=== PATIENT | male | born 2000 | race Caucasian/White ===

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

== ENCOUNTER 2019-09-12 19:06 | Emergency (ER) | payer OTHER, SELFPAY ==
[2019-09-12 19:20] VITALS: BP 126/76; PULSE 78; RESP 19; TEMP 36.6; O2SAT 99; BMI 23.3
--- NOTE | 2019-09-12 19:37 | HMH.EDUTC ---
[facility] [place] Disposition Clinical Impression: Encounter for laboratory testing for COVID-19 virus Disposition: Home, Self-Care Condition on Discharge: Good Instructions: Preventing the Spread of Coronavirus Discharge Instructions Additional Instructions: Go home and self quarantine until you get your test results back and negative result *You was given handout with instructions for both suspected COVID19 quarantine instructions and confirmed COVID 19 instructions, make sure you read and follow these instructions to help prevent the spread of COVID19 *Call back to [facility] on Saturday to see if your test results are back Return if needed Straight to ER if any life threatening symptoms Even if you have a negative result if you start having symptoms of COVID19 you will need to be retested Referrals: PCP,No [Primary Care Provider] - As needed Forms: Work/School Release Time of Disposition: 19:54 Medical Decision Making - Eduardo Inquiry Pt receiving controlled substance: No Eduardo was queried for this patient: No Vital Signs: 09/12/19 19:20 Temperature 97.9 F Temperature Source Oral Pulse Rate [Right Brachial] 78 Respiratory Rate 19 Blood Pressure [Right Arm] 126/76 Blood Pressure Mean [Right Arm] 92 Blood Pressure Source [Right Arm] Automatic Cuff Blood Pressure Position [Right Arm] Sitting 02 Sat by Pulse Oximetry 99 Oxygen Delivery Method Room Air Orders (Tests/Meds): ORDERS Category Date Time Status SARS-CoV-2, JOSE ([place]) Stat Lab 09/12/19 19:10 Ordered [facility] [place] HPI - General Stated complaint: exposed to covid 19 Time Seen by Provider: 09/12/19 19:37 Mode of Arrival: Ambulatory Source of Information: Patient Limitations: No Limitations Description of Symptoms (Recalled from Triage Doc. by RN): PATIENT REQUESTING COVID-19 TEST AFTER BEING EXPOSED ON 09/05/19. DENIES ANY SYMPTOMS HEENT Symptoms (Recalled from RN notes): No Resp Symptoms (Recalled from RN notes): No Skin Symptoms (Recalled from RN notes): No MS Symptoms (Recalled from RN notes): No Functional Status (Recalled from RN notes): WNL - History of Present Illness Provider Complaint: Patient states that he was around someone on the 4th that recently tested positive for COVID19 States that initialy her test was negative then she was retested and it was positive States that his work made him to come and get checked and tested - Related Data Allergies Allergy/AdvReac Type Severity Reaction Status Date / Time No Known Allergies Allergy Verified 12/18/18 18:17 - Worker's Comp Is this a Worker's Comp case?: No [facility] History - Hepatitis A Screen Drug use history?: No High risk sexual behaviors?: No History of sexually transmitted infection?: No Currently employed?: No Childcare worker?: No Do you have indoor plumbing?: Yes Do you have electricity?: Yes Attestation statement:: This patient has been screened for Hepatitis A risk factors. I have reviewed the patient's past medical history: Yes Medical History: Denies:: Cancer, Diabetes Mellitus Type 1, Diabetes Mellitus Type 2, Hypertension, MRSA Other Surgeries: Yes: No Previous Surgery Amputation: No Fractures: No - Social History Smoking Status: Never smoker Alcohol Intake: never Substance Use Type: denies use Occupational Status: other Housing: house Household Members: family Family Hx:: Diabetes, Hypertension ROS Obtained: Yes All systems reviewed & no additional complaints, Yes Systems reviewed as appropriate & no additional complaints - Constitutional Constitutional: Reports system reviewed and no additional complaints, except as docu, Denies body ache, Denies chills, Denies fever(s), Denies headache(s) - ENT Ears, Nose, Mouth, and Throat: Reports system reviewed and no additional complaints, except as docu, Denies sinus pain, Denies sinus pressure, Denies sore throat - Cardiovascular Cardiovascular: Reports system reviewed and no additional complaints, except as docu - Respira
[2019-09-12 19:55] VITALS: BP 126/76; PULSE 78; RESP 19; TEMP 36.6; O2SAT 99
[2019-09-14 19:02] LABS: Covid-19 Nasal PCR Sendout UK Not Detected
== END 2019-09-12 19:57 | disposition home or self-care (01) ==
PROVIDERS: Emergency Provider Nurse Practitioner
DX: Z03.818 Encounter for observation for suspected exposure to other biological agents ruled out (principal)
CPT/HCPCS: 99201; U0003

== ENCOUNTER 2019-12-02 15:57 | Emergency (ER) | payer OTHER, SELFPAY ==
[2019-12-02 16:12] VITALS: BP 124/85; PULSE 68; RESP 19; TEMP 36.6; O2SAT 98; BMI 22.2
--- NOTE | 2019-12-02 16:51 | HMH.EDUTC ---
[facility] [place] Clinical Impression: Viral syndrome Disposition: Home, Self-Care Condition on Discharge: Good Instructions: DI for Viral Syndrome Additional Instructions: Drink plenty of fluids. Take tylenol or ibuprofen for pain or fever. Take the medications as directed. Follow up with your regular doctor. GO TO THE ER FOR ANY WORSENING SYMPTOMS FOLLOW THE DIRECTIONS ON THE COVID-19 HAND OUT THAT WE GAVE YOU REGARDING SELF-ISOLATION UNTIL YOU KNOW YOUR COVID-19 RESULTS Prescriptions: Ondansetron [Zofran 4mg ODT] 4 mg PO Q8HP PRN #10 tab.rapdis PRN Reason: Nausea Transmission Status: Pending to [facility] #[id number] Referrals: PCP,No [Primary Care Provider] - Forms: Work/School Release Time of Disposition: 16:56 Medical Decision Making - Medical Records Medical records reviewed: No: I reviewed the patient's medical records. - Eduardo Inquiry Pt receiving controlled substance: No Vital Signs: 12/02/19 16:12 Temperature 97.8 F Temperature Source Oral Pulse Rate [Radial] 68 Respiratory Rate 19 Blood Pressure [Right Arm] 124/85 Blood Pressure Mean [Right Arm] 98 Blood Pressure Source [Right Arm] Automatic Cuff Blood Pressure Position [Right Arm] Sitting 02 Sat by Pulse Oximetry 98 Oxygen Delivery Method Room Air Orders (Tests/Meds): ORDERS Category Date Time Status Covid-19 Nasal PCR ([facility]) Routine Lab 12/02/19 16:20 Received [facility] [place] HPI - General Stated complaint: SOB, Back pain,headaches Time Seen by Provider: 12/02/19 16:51 Mode of Arrival: Ambulatory Source of Information: Patient Limitations: No Limitations Description of Symptoms (Recalled from Triage Doc. by RN): cough, headache, exposed to COVID yest HEENT Symptoms (Recalled from RN notes): Yes Resp Symptoms (Recalled from RN notes): No Skin Symptoms (Recalled from RN notes): No MS Symptoms (Recalled from RN notes): No Functional Status (Recalled from RN notes): wnl - History of Present Illness Provider Complaint: He c/o chilling, body aches and nausea since this morning. He believes that he was exsposed to COVID-19 a few days ago. - Related Data Previous Rx's Medication Instructions Recorded Ondansetron [Zofran 4mg ODT] 4 mg PO Q8HP PRN #10 tab.rapdis 12/02/19 Allergies Allergy/AdvReac Type Severity Reaction Status Date / Time No Known Allergies Allergy Verified 12/18/18 18:17 - Worker's Comp Is this a Worker's Comp case?: No [facility] History - Hepatitis A Screen Drug use history?: No High risk sexual behaviors?: No History of sexually transmitted infection?: No Currently employed?: No Childcare worker?: No Do you have indoor plumbing?: Yes Do you have electricity?: Yes Attestation statement:: This patient has been screened for Hepatitis A risk factors. I have reviewed the patient's past medical history: Yes Medical History: Denies:: Cancer, Diabetes Mellitus Type 1, Diabetes Mellitus Type 2, Hypertension, MRSA Other Surgeries: Yes: No Previous Surgery Amputation: No Fractures: No - Social History Smoking Status: Never smoker Alcohol Intake: never Substance Use Type: denies use Occupational Status: other Housing: house Household Members: family Family Hx:: Diabetes, Hypertension ROS Obtained: Yes All systems reviewed & no additional complaints - Constitutional Constitutional: Reports chills, Reports fever(s), Reports poor appetite, Reports malaise - Eyes Eyes: Denies eye discharge - ENT Ears, Nose, Mouth, and Throat: Denies dizziness, Denies otalgia, Reports sore throat - Cardiovascular Cardiovascular: Denies chest pain - Respiratory Respiratory: No chest congestion, No cough - Gastrointestinal Gastrointestingal: Reports: nausea. Denies: abdominal pain, diarrhea, vomiting Physical Exam - General General appearance: alert, in no apparent distress - Head Head exam: atraumatic, normocephalic, normal inspection - Eye Eye e
[2019-12-02 17:09] VITALS: BP 124/85; PULSE 68; RESP 19; TEMP 36.6; O2SAT 98
== END 2019-12-02 17:10 | disposition home or self-care (01) ==
PROVIDERS: Emergency Provider Nurse Practitioner Family
DX: B34.9 Viral infection, unspecified (principal); Z20.828 Contact with and (suspected) exposure to other viral communicable diseases
CPT/HCPCS: 99201; U0003

== ENCOUNTER 2020-01-21 09:50 | Emergency (ER) | payer OTHER, SELFPAY ==
[2020-01-21 10:02] VITALS: BP 110/73; PULSE 72; RESP 18; TEMP 36.7; O2SAT 100; BMI 24.4
--- NOTE | 2020-01-21 10:18 | HMH.EDUTC ---
[facility] [place]: Viral syndrome Disposition: Home, Self-Care Condition on Discharge: Good Instructions: Cough, DI for Cough -- Adult, Nausea and Vomiting-Adult, Sore Throat Additional Instructions: * No sign of bacterial infection. Likely viral. Virus can take 7-14 days to run their course *Monitor Temp, Over the counter Motrin or Tylenol as directed/as needed Tylenol every 4 hours and Motrin every 6 hours (as long as your family doctor has told you that you can take it) for fever or pain. and straight to ER if unable to lower temp less than 101.0 after medication given *Warm salt water gargles may help to soothe the throat *Throat Lozenges *Warm fluids like tea with honey may help to soothe the throat *Sleep elevated *Humidifier/Vaporizer Your throat swab was sent for culture. Those results are typically sent to your primary care. Be sure to follow up in 2-3 days with your family doctor/primary care physician if no improvement so they can review those result and treat if necessary. If you don?t have a primary care doctor, I recommend you get one but in the mean time, you will have to return to a walk in clinic Follow up IMMEDIATELY for new or worsening symptoms or no Noticeable improvement over the next 48-72 hours. 911 for difficulty breathing or swallowing You was tested for today for COVID19 your test result should be back in the next 24-48 hours, you may call to the [facility] later today or tomorrow to see if your test results are back and the result [phone] [facility] hours are 9am-9pm You was given a handout with instructions for Self Quarantine and Self isolation for while you wait on test results and what to do if they are positive If you are positive the Health Dept will be contacting you also Prescriptions: Fluticasone Propionate [Flonase 50mcg nasal spray 16gm] 1 spr NS DAILY #1 bottle Transmission Status: Pending to [facility] # Ondansetron [Zofran 4mg ODT] 4 mg PO TIDP PRN #6 tab PRN Reason: Vomiting Transmission Status: Pending to [facility] #[id number] Referrals: PCP,No [Primary Care Provider] - As needed Forms: Work/School Release Time of Disposition: 10:24 Medical Decision Making - Eduardo Inquiry Pt receiving controlled substance: No Eduardo was queried for this patient: No Vital Signs: 01/21/20 10:02 Temperature 98.0 F Temperature Source Oral Pulse Rate [Radial] 72 Respiratory Rate 18 Blood Pressure [Right Arm] 110/73 Blood Pressure Mean [Right Arm] 85 Blood Pressure Source [Right Arm] Automatic Cuff Blood Pressure Position [Right Arm] Sitting 02 Sat by Pulse Oximetry 100 Oxygen Delivery Method Room Air [facility] [place] - General Stated complaint: sore throat,headache,vomiting Time Seen by Provider: 01/21/20 10:18 Mode of Arrival: Ambulatory Source of Information: Patient Limitations: No Limitations Description of Symptoms (Recalled from Triage Doc. by RN): aquino, wants tested for flu and strep HEENT Symptoms (Recalled from RN notes): Yes Resp Symptoms (Recalled from RN notes): No Skin Symptoms (Recalled from RN notes): No MS Symptoms (Recalled from RN notes): No Functional Status (Recalled from RN notes): wnl - History of Present Illness Provider Complaint: Patient states that he hasnt felt well for about 2 weeks States that he has been having nausea and vomiting off and off usually after coughing States that he has had headache and body aches and his throat feels sore and scratchy States that he wanted to get tested for flu and strep - Related Data Previous Rx's Medication Instructions Recorded Ondansetron [Zofran 4mg ODT] 4 mg PO Q8HP PRN #10 tab.rapdis 12/02/19 Fluticasone Propionate [Flonase 1 spr NS DAILY #1 bottle 01/21/20 50mcg nasal spray 16gm] Ondansetron [Zofran 4mg ODT] 4 mg PO TIDP PRN #6 tab 01/21/20 Allergies Allergy/AdvReac Type Severity Reaction Status Date / Time No Known Allergies Allergy Verified
[2020-01-21 10:32] VITALS: BP 110/73; PULSE 72; RESP 18; TEMP 36.7; O2SAT 100
[2020-01-21 20:12] LABS: UTC Influenza A Antigen Negative (Negative); UTC Influenza B Antigen Negative (Negative); UTC Strep Screen (Rapid) Negative (Negative)
[2020-01-22 10:45] LABS: Covid-19 Nasal PCR Sendout Lex Not Detected
== END 2020-01-21 10:32 | disposition home or self-care (01) ==
PROVIDERS: Emergency Provider Nurse Practitioner
DX: Z20.828 Contact with and (suspected) exposure to other viral communicable diseases (principal); B34.9 Viral infection, unspecified
CPT/HCPCS: 87804; 87880; 99202; U0004

== ENCOUNTER 2020-02-28 08:35 | Emergency (ER) | payer OTHER, SELFPAY ==
[2020-02-28 08:37] VITALS: BP 132/76; PULSE 88; RESP 16; TEMP 36.7; O2SAT 99; BMI 21.7
--- NOTE | 2020-02-28 08:43 | HMH.EDGENADL ---
ED Disposition Clinical Impression: Laceration Disposition: Home, Self-Care Condition on Discharge: Good Instructions: DI for Laceration Repair Additional Instructions: Over the next 24 hours, try not to get suture site wet. After that, you can clean gently around suture site but do not directly scrub on suture site. Please return in 5 to 7 days for suture removal. Return before then if any issues. Referrals: PCP,No [Primary Care Provider] - - Critical Care Critical Care Time: No Attestation: On 02/28/20, the high probability of a clinically significant, sudden or life threatening deterioration of the following system(s) required my full and direct attention, intervention and personal management. The time I documented below is in addition to time spent performing reported procedures but includes the following listed in this critical care notation. Medical Decision Making - Medical Records Medical records reviewed: Yes: I reviewed the patient's medical records. - Eduardo Inquiry Pt receiving controlled substance: No Vital Signs: 02/28/20 08:37 Temperature 98.1 F Temperature Source Oral Pulse Rate [Right Radial] 88 Respiratory Rate 16 Blood Pressure [Right Arm] 132/76 Blood Pressure Mean [Right Arm] 94 Blood Pressure Source [Right Arm] Automatic Cuff Blood Pressure Position [Right Arm] Sitting 02 Sat by Pulse Oximetry 99 Oxygen Delivery Method Room Air Orders (Tests/Meds): ED MEDICATIONS Discontinued Medications Generic Name Dose Route Start Last Admin Trade Name Rodrick PRN Reason Stop Dose Admin Lidocaine/Epinephrine 10 ml 02/28/20 08:50 02/28/20 09:05 Lidocaine 1% W/Epi 1:100,000 20ml Vial SQ 02/28/20 08:51 10 ml ONCE ONE Administration Tetanus/Reduced Diphtheria/Acell Pertussis 0.5 ml 02/28/20 09:00 02/28/20 08:55 Tet/Diphth/Pert-Adult 0.5ml Syringe IM 02/28/20 09:01 0.5 ml .ONCE ONE Administration Medical Decision Narrative: Patient with upper eyelid laceration. Indication for repair in the emergency department. Tetanus updated. See procedure section for further details on laceration repair. Patient tolerated procedure well. He will return in 5 to 7 days for suture removal. He will return before that if any complications. Assessment: Eyelid laceration status post suture repair Tdap Disposition: Home with suture care guidelines and follow-up in 5 to 7 days for suture removal General Adult HPI - General Stated complaint: left eye lceration Time Seen by Provider: 02/28/20 08:43 - History of Present Illness HPI narrative: Patient is a 19-year-old male presenting with a left eyelid laceration. Patient states 1 hour ago at work he tripped and accidentally brushed the side of his face up against a pole. He suffered a laceration to his left upper eyelid. No vision changes. No loss of consciousness. No associated pain. He is unsure of his tetanus status. He is concerned he may need stitches. - Related Data Previous Rx's Medication Instructions Recorded cyclobenzaprine 10 mg tablet 10 mg PO TID PRN 7 Days #21 tab 02/09/20 Allergies Allergy/AdvReac Type Severity Reaction Status Date / Time No Known Allergies Allergy Verified 02/09/20 15:18 [facility] History - Hepatitis A Screen Attestation statement:: This patient has been screened for Hepatitis A risk factors. Medical History: Denies:: Cancer, Diabetes Mellitus Type 1, Diabetes Mellitus Type 2, Hypertension, MRSA Other Surgeries: Yes: No Previous Surgery Amputation: No Fractures: No - Social History Smoking Status: Never smoker Alcohol Intake: never Substance Use Type: denies use Occupational Status: employed Housing: house Household Members: family Family Hx:: Diabetes, Hypertension, Non-contributory ROS Obtained: Yes All systems reviewed & no additional complaints Physical Exam - General General appearance: alert, in no apparent distress - Head Head exam: nor
[2020-02-28 09:12] VITALS: BP 121/78; PULSE 80; O2SAT 99
[2020-02-28 09:34] VITALS: BP 117/72; PULSE 71; RESP 16; TEMP 36.7; O2SAT 99
== END 2020-02-28 09:35 | disposition home or self-care (01) ==
PROVIDERS: Emergency Provider Emergency Medicine
DX: S01.112A Laceration without foreign body of left eyelid and periocular area, initial encounter (principal); W22.09XA Striking against other stationary object, initial encounter; Y92.89 Other specified places as the place of occurrence of the external cause; Z23 Encounter for immunization
CPT/HCPCS: 12013; 90471; 90715; 99282

== ENCOUNTER 2020-03-04 11:00 | Emergency (ER) | payer OTHER, SELFPAY ==
[2020-03-04 11:30] VITALS: BMI 23.3
[2020-03-04 11:31] VITALS: BP 0/0; PULSE 0; RESP 0; TEMP -17.7; TEMP 0
== END 2020-03-04 11:32 | disposition home or self-care (01) ==
LOC: UTC 11:30
PROVIDERS: Emergency Provider Nurse Practitioner
DX: S01.112D Laceration without foreign body of left eyelid and periocular area, subsequent encounter (principal)

== ENCOUNTER 2020-04-05 14:01 | Emergency (ER) | payer OTHER, SELFPAY ==
[2020-04-05 14:05] VITALS: BP 122/74; PULSE 81; RESP 18; TEMP 37; O2SAT 98; BMI 20.3
--- NOTE | 2020-04-05 14:22 | HMH.EDUTC ---
[facility] [place] Disposition Clinical Impression: Encounter for laboratory testing for COVID-19 virus Otitis media Qualifiers: Otitis media type: unspecified Laterality: left Qualified Code(s): H66.92 - Otitis media, unspecified, left ear Disposition: Home, Self-Care Condition on Discharge: Good Instructions: Middle Ear Infection, Amoxicillin, DI for COVID-19 (Suspected or Confirmed ), Coronavirus Disease 2019, Preventing the Spread of Coronavirus Discharge Instructions Additional Instructions: *Monitor Temp, Over the counter Motrin or Tylenol as directed/as needed Tylenol every 4 hours and Motrin every 6 hours (as long as your family doctor has told you that you can take it) for fever or pain. and straight to ER if unable to lower temp less than 101.0 after medication given *Warm salt water gargles may help to soothe the throat *Throat Lozenges *Warm fluids like tea with honey may help to soothe the throat *Sleep elevated *Humidifier/Vaporizer *Flonase 2 sprays in each nostril daily but be aware that it may take 2-3 days before you notice improvement Your throat swab was sent for culture. Those results are typically sent to your primary care. Be sure to follow up in 2-3 days with your family doctor/primary care physician if no improvement so they can review those result and treat if necessary. If you don?t have a primary care doctor, I recommend you get one but in the mean time, you will have to return to a walk in clinic Follow up IMMEDIATELY for new or worsening symptoms or no Noticeable improvement over the next 48-72 hours. 911 for difficulty breathing or swallowing You were tested for today for COVID19 your test result should be back in the next 24-48 hours, you may call to the [facility] to see if your test results are back in the next 48 hours [phone] [facility] hours are 9am-9pm You was given a handout with instructions for Self Quarantine and Self isolation for while you wait on test results and what to do if they are positive If you are positive the Health Dept will be contacting you also Prescriptions: Amoxicillin [Amoxicillin 500mg Cap] 500 mg PO TID #30 cap Transmission Status: Pending to [facility] #[id number] Fluticasone Propionate [Flonase 50mcg nasal spray 16gm] 1 spr NS DAILY #1 bottle Transmission Status: Pending to [facility] #[id number] Referrals: PCP,No [Primary Care Provider] - As needed Forms: Work/School Release Time of Disposition: 14:26 Medical Decision Making - Eduardo Inquiry Pt receiving controlled substance: No Eduardo was queried for this patient: No Vital Signs: 04/05/20 14:05 Temperature 98.6 F Temperature Source Oral Pulse Rate [Right Brachial] 81 Respiratory Rate 18 Blood Pressure [Right Arm] 122/74 Blood Pressure Mean [Right Arm] 90 Blood Pressure Source [Right Arm] Automatic Cuff Blood Pressure Position [Right Arm] Sitting 02 Sat by Pulse Oximetry 98 Oxygen Delivery Method Room Air - Lab Data Lab results reviewed: Yes: I reviewed the patient's lab results. Orders (Tests/Meds): ORDERS Category Date Time Status Covid-19 Nasal PCR ([facility]) Routine Lab 04/05/20 14:08 Received [facility] [place] HPI - General Stated complaint: covid test Time Seen by Provider: 04/05/20 14:22 Mode of Arrival: Ambulatory Source of Information: Patient Limitations: No Limitations Description of Symptoms (Recalled from Triage Doc. by RN): PATIENT C/O SORE THROAT, DIZZINESS, AND DIARRHEA X 2 DAYS HEENT Symptoms (Recalled from RN notes): Yes Resp Symptoms (Recalled from RN notes): No Skin Symptoms (Recalled from RN notes): No MS Symptoms (Recalled from RN notes): No Functional Status (Recalled from RN notes): WNL - History of Present Illness Provider Complaint: Patient states that he has been around several people that work with him that has recently tested postive for COVID States that he has been having sore throat pain in his left ear, feeling of dizziness at times when he changes positions
[2020-04-05 14:27] VITALS: BP 122/74; PULSE 81; RESP 18; TEMP 37; O2SAT 98
[2020-04-05 14:37] LABS: UTC Strep Screen (Rapid) Negative (Negative)
== END 2020-04-05 14:32 | disposition home or self-care (01) ==
PROVIDERS: Emergency Provider Nurse Practitioner
DX: H66.92 Otitis media, unspecified, left ear (principal); J02.9 Acute pharyngitis, unspecified; R42 Dizziness and giddiness; R19.7 Diarrhea, unspecified; Z20.822 Contact with and (suspected) exposure to COVID-19
CPT/HCPCS: 87880; 99202; G0463; U0003

== ENCOUNTER 2021-07-19 12:56 | Emergency (ER) | payer OTHER, SELFPAY ==
[2021-07-19 13:40] VITALS: BP 131/75; PULSE 68; RESP 18; TEMP 36.7; O2SAT 98; BMI 29.7
[2021-07-19 14:07] LABS: UTC Influenza A Antigen Negative (Negative); UTC Influenza B Antigen Negative (Negative)
--- NOTE | 2021-07-19 14:36 | HMH.EDUTC ---
[facility] [place] Clinical Impression: Sinusitis Qualifiers: Sinusitis location: unspecified location Chronicity: unspecified Qualified Code(s): J32.9 - Chronic sinusitis, unspecified Disposition: Home, Self-Care Condition on Discharge: Good Instructions: Sinusitis, DI for Sinusitis Additional Instructions: *Monitor Temp, Over the counter Motrin or Tylenol as directed/as needed Tylenol every 4 hours and Motrin every 6 hours (as long as your family doctor has told you that you can take it) for fever or pain. and straight to ER if unable to lower temp less than 101.0 after medication given *Warm salt water gargles may help to soothe the throat *Throat Lozenges *Warm fluids like tea with honey may help to soothe the throat *Sleep elevated *Humidifier/Vaporizer Take medication as prescribed Follow up IMMEDIATELY for new or worsening symptoms or no Noticeable improvement over the next 48-72 hours. 911 for difficulty breathing or swallowing Prescriptions: methylPREDNISolone [Medrol 4mg tab] 4 mg PO DIRECTED #21 tab Transmission Status: Pending to [facility] # Azithromycin [Z-Guilherme 250mg Tab] 250 mg PO DIRECTED #6 tab Transmission Status: Pending to [facility] # Referrals: Provider,Referral, MD [Primary Care Provider] - As needed Forms: Work/School Release Time of Disposition: 14:44 Medical Decision Making - Eduardo Inquiry Pt receiving controlled substance: No Eduardo was queried for this patient: No Vital Signs: 07/19/21 13:40 Temperature 98.0 F Temperature Source Oral Pulse Rate [Right Brachial] 68 Respiratory Rate 18 Blood Pressure [Right Arm] 131/75 Blood Pressure Mean [Right Arm] 93 Blood Pressure Source [Right Arm] Automatic Cuff Blood Pressure Position [Right Arm] Sitting 02 Sat by Pulse Oximetry 98 Oxygen Delivery Method Room Air - Lab Data Lab results reviewed: Yes: I reviewed the patient's lab results. Lab Results 07/19/21 13:53: Influenza Type A Ag Negative, Influenza Type B Ag Negative [facility] [place] - General Stated complaint: migraine, abd pain, runny nose, nausea Time Seen by Provider: 07/19/21 14:36 Mode of Arrival: Ambulatory Source of Information: Patient Limitations: No Limitations Description of Symptoms (Recalled from Triage Doc. by RN): PATIENT C/O HEADACHE, SOA, AND SINUS PRESSURE SINCE YESTERDAY HEENT Symptoms (Recalled from RN notes): Yes Resp Symptoms (Recalled from RN notes): Yes Skin Symptoms (Recalled from RN notes): No MS Symptoms (Recalled from RN notes): No Functional Status (Recalled from RN notes): WNL - History of Present Illness Provider Complaint: Patient states that he has been having sinus issues for over a week but for the last couple of days he has been having worsening of sinus pain and pressure, drainage in the back of his throat and at times feels like he cannot get a good breath States a couple weeks ago several people at work had flu - Related Data Previous Rx's Medication Instructions Recorded triamcinolone acetonide 0.025 % 1 applic TOPICAL BID 7 Days #80 g 03/26/21 topical cream Azithromycin [Z-Guilherme 250mg Tab] 250 mg PO DIRECTED #6 tab 07/19/21 methylPREDNISolone [Medrol 4mg 4 mg PO DIRECTED #21 tab 07/19/21 tab] Allergies Allergy/AdvReac Type Severity Reaction Status Date / Time No Known Allergies Allergy Verified 03/26/21 16:19 - Worker's Comp Is this a Worker's Comp case?: No [facility] History - Hepatitis A Screen Attestation statement:: This patient has been screened for Hepatitis A risk factors. I have reviewed the patient's past medical history: Yes Medical History: Denies:: Cancer, Diabetes Mellitus Type 1, Diabetes Mellitus Type 2, Hypertension, MRSA Other Surgeries: Yes: No Previous Surgery Amputation: No Fractures: No - Social History Smoking Status: Never smoker Alcohol Intake: never Substance Use Type: denies use Occupational Status: other Housing
[2021-07-19 14:45] VITALS: BP 131/75; PULSE 68; RESP 18; TEMP 36.7; O2SAT 98
== END 2021-07-19 14:48 | disposition home or self-care (01) ==
PROVIDERS: Emergency Provider Nurse Practitioner
DX: J32.9 Chronic sinusitis, unspecified (principal)
CPT/HCPCS: 87804; 99212; G0463

== ENCOUNTER 2021-09-28 14:31 | Emergency (ER) | payer OTHER, SELFPAY ==
[2021-09-28 15:44] VITALS: BP 113/67; PULSE 76; RESP 18; TEMP 36.7; O2SAT 98; BMI 25.5
--- NOTE | 2021-09-28 16:09 | HMH.EDUTC ---
[facility] – [place] Disposition Clinical Impression: Viral syndrome Low back pain Qualifiers: Chronicity: unspecified Back pain laterality: midline Sciatica presence: without sciatica Qualified Code(s): M54.50 - Low back pain, unspecified Disposition: Home, Self-Care Condition on Discharge: Good Instructions: DI for Chronic Pain -- Adult, Low Back Pain, DI for Low Back Pain, Methocarbamol Additional Instructions: *Ibuprofen mihai 6 hours with meal as needed for pain/inflammation *Not additional anti-inflammatory like motrin, aleve, advil with the above amount of ibuprofen. You can still take Tylenol every 4 hours as needed if you need something else for pain *Ice 20 minutes every 2 hours for the first 48 hours after the initial injury followed by moist heat every 20 minutes 3-4 times a day to affected area *Muscle relaxer every 12 hours as needed for muscle spasms but remember, it WILL cause drowsiness You cannot take it and drive, operate machinery or care for small children. *Keep this area active, no movement leads to more stiffness, However take it easy and avoid heavy lifting pushing or pulling *Follow up with you family doctor if no improvement for further treatment Prescriptions: Ibuprofen [Ibuprofen 600mg Tablet] 600 mg PO Q6HP PRN #20 tab PRN Reason: Moderate Pain Transmission Status: Pending to [employer] # methocarbamoL [Methocarbamol 500mg Tablet] 500 mg PO BID PRN #20 tab PRN Reason: Muscle Spasm Transmission Status: Pending to [employer] # Referrals: Provider,Referral, MD [Primary Care Provider] - As needed Forms: Work/School Release Time of Disposition: 16:18 Medical Decision Making - Eduardo Inquiry Pt receiving controlled substance: No Eduardo was queried for this patient: No Vital Signs: 09/28/21 15:44 Temperature 98.1 F Temperature Source Oral Pulse Rate [Radial] 76 Respiratory Rate 18 Blood Pressure [Right Arm] 113/67 Blood Pressure Mean [Right Arm] 82 Blood Pressure Source [Right Arm] Automatic Cuff Blood Pressure Position [Right Arm] Sitting 02 Sat by Pulse Oximetry 98 Oxygen Delivery Method Room Air Orders (Tests/Meds): ORDERS Category Date Time Status Covid-19 Nasal PCR ([facility]) Routine Lab 09/28/21 16:01 Received [facility] [place] HPI - General Stated complaint: covid test, lower back pain Time Seen by Provider: 09/28/21 16:09 Mode of Arrival: Ambulatory Source of Information: Patient Limitations: No Limitations Description of Symptoms (Recalled from Triage Doc. 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 and felt something pull State that also he has been feeling achy all over with headache and runny nose and wanted to get tested for COVID denies loss of control of bowel or bladder - Related Data Previous Rx's Medication Instructions Recorded triamcinolone acetonide 0.025 % 1 applic TOPICAL BID 7 Days #80 g 03/26/21 topical cream Azithromycin [Z-Guilherme 250mg Tab] 250 mg PO DIRECTED #6 tab 07/19/21 methylPREDNISolone [Medrol 4mg 4 mg PO DIRECTED #21 tab 07/19/21 tab] Ibuprofen [Ibuprofen 600mg 600 mg PO Q6HP PRN #20 tab 09/28/21 Tablet] methocarbamoL [Methocarbamol 500mg 500 mg PO BID PRN #20 tab 09/28/21 Tablet] Allergies Allergy/AdvReac Type Severity Reaction Status Date / Time No Known Allergies Allergy Verified 03/26/21 16:19 - Worker's Comp Is this a Worker's Comp case?: No [facility] History - Hepatitis A Screen Attestation statement:: This patient has been screened for Hepa
[2021-09-28 16:24] VITALS: BP 113/67; PULSE 76; RESP 18; TEMP 36.7; O2SAT 98
== END 2021-09-28 16:26 | disposition home or self-care (01) ==
PROVIDERS: Emergency Provider Nurse Practitioner
DX: M54.50 Low back pain, unspecified (principal); B34.9 Viral infection, unspecified; Z20.822 Contact with and (suspected) exposure to COVID-19; R51.9 Headache, unspecified
CPT/HCPCS: 99212; C9803; G0463; U0003; U0005

== ENCOUNTER 2021-10-23 12:33 | Emergency (ER) | payer OTHER, SELFPAY ==
[2021-10-23 12:33] VITALS: BP 103/64; PULSE 82; RESP 20; TEMP 37.1; O2SAT 97; BMI 27.8
--- NOTE | 2021-10-23 12:37 | ECG_ITS ---
APPROVED REPORT Exam: Resting ECG HR:71 bpm ECG Measurements Heart Rate 71 AXES AR 171 P 68 QRSd 110 QRS 84 QT 354 T 63 QTc 377 Conclusion SINUS RHYTHM WITH SINUS ARRHYTHMIA NORMAL ECG UNCONFIRMED REPORT Electronically signed by : Lucian Posey MD 10/24/2021 21:27:05
--- NOTE | 2021-10-23 12:44 | XR_ITS ---
FINAL REPORT TECHNIQUE: Chest PA & Lateral CLINICAL HISTORY: chest pain COMPARISON: October 14, 2018 FINDINGS: 2 views of the chest were performed. The heart size is normal. The mediastinum is within normal limits. There is no acute cardiopulmonary process. There are no pleural effusions. There is no pneumothorax. The bony thorax appears intact. IMPRESSION: No acute cardiopulmonary process. Reviewed, Interpreted and Dictated by Blayne Grant MD Transcribed by Luisa Aguayo Authenticated and [facility]
[2021-10-23 12:59] LABS: Basophils # 0.1 K/mm3 (0-0.2); Basophils % 1.7 % (0.1-2.0); Eosinophils % 0.5 % (0.1-12.0); Hematocrit 41.9 % (42.0-52.0); Hemoglobin 13.7 g/dL (14.1-18.0); Lymphocytes # 0.5 K/mm3 (0.7-4.5); Lymphocytes % 15.1 % (10-50); Mean Corpuscular HGB Conc 32.8 g/dL (31.8-35.4); Mean Corpuscular Hemoglobin 29.2 pg (27.0-31.2); Mean Corpuscular Volume 88.9 fl (80-94); Monocytes # 0.5 K/mm3 (0.1-1.0); Monocytes % 13.7 % (1.7-9.3); Neutrophils # 2.4 K/mm3 (1.8-7.8); Platelet Count 200 K/mm3 (142-424); Red Blood Count 4.71 M/mm3 (4.60-6.20); Red Cell Distribution Width 12.8 % (11.5-17.5); White Blood Count 3.4 K/mm3 (4.8-10.8)
[2021-10-23 13:00] VITALS: BP 109/66; PULSE 73; O2SAT 95
[2021-10-23 13:08] LABS: Anion Gap 7.9 mEq/L (5-15); Blood Urea Nitrogen 7 mg/dl (9-20); Calcium 8.4 mg/dl (8.4-10.2); Carbon Dioxide 27 mmol/L (22.0-30.0); Chloride 105 mmol/L (98-107); Creatinine Clearance Estimated 127 mL/min (50-200); Estimated Glomerular Filt Rate 83 ml/min (>60); GFR (African American) 100 ML/MIN (>60); Glucose 84 mg/dl (74-100); Potassium 3.9 mmoL/L (3.5-5.1); Sodium 136 mmol/L (136-145)
[2021-10-23 13:21] LABS: Troponin I < 0.01 ng/ml (0.00-0.034)
--- NOTE | 2021-10-23 13:27 | HMH.EDCP ---
ED Disposition Clinical Impression: Chest pain Qualifiers: Chest pain type: unspecified Qualified Code(s): R07.9 - Chest pain, unspecified Disposition: Home, Self-Care Condition on Discharge: Good Referrals: Provider,Referral, [Primary Care Provider] - Forms: Work/School Release - Critical Care Critical Care Time: No Attestation: On 10/23/21, the high probability of a clinically significant, sudden or life threatening deterioration of the following system(s) required my full and direct attention, intervention and personal management. The time I documented below is in addition to time spent performing reported procedures but includes the following listed in this critical care notation. Medical Decision Making - Medical Records Medical records reviewed: Yes: I reviewed the patient's medical records. - Eduardo Inquiry Pt receiving controlled substance: No Vital Signs: 10/23/21 12:33 10/23/21 13:00 10/23/21 13:30 Temperature 98.8 F Temperature Source Oral Pulse Rate 73 74 Pulse Rate [Left Radial] 82 Respiratory Rate 20 Blood Pressure 109/66 L 112/72 Blood Pressure [Right Arm] 103/64 L Blood Pressure Mean [Right Arm] 77 Blood Pressure Source Automatic Cuff Blood Pressure Position Sitting 02 Sat by Pulse Oximetry 97 95 98 Oxygen Delivery Method Room Air Room Air 10/23/21 14:00 10/23/21 14:31 10/23/21 14:39 Temperature 98.8 F Temperature Source Oral Pulse Rate 63 76 66 Pulse Rate [Left Radial] Respiratory Rate 22 Blood Pressure 110/69 111/75 111/75 Blood Pressure [Right Arm] Blood Pressure Mean [Right Arm] Blood Pressure Source Automatic Cuff Blood Pressure Position Sitting 02 Sat by Pulse Oximetry 99 99 Oxygen Delivery Method Room Air Room Air Room Air - Lab Data Lab Results 10/23/21 12:40: WBC 3.4 L, RBC 4.71, Hgb 13.7 L, Hct 41.9 L, MCV 88.9, MCH 29.2, MCHC 32.8, RDW 12.8, Plt Count 200, MPV 8.0, Neut % (Auto) 69.0, Lymph % (Auto) 15.1, Caswell % (Auto) 13.7 H, Eos % (Auto) 0.5, Baso % (Auto) 1.7, Neut # (Auto) 2.4, Lymph # (Auto) 0.5 L, Caswell # (Auto) 0.5, Eos # (Auto) 0.0, Baso # (Auto) 0.1 10/23/21 12:40: Sodium 136, Potassium 3.9, Chloride 105, Carbon Dioxide 27, Anion Gap 7.9, BUN 7 L, Creatinine 1.10, Estimated Creat Clear 127, Estimated GFR 83, Est GFR ( Amer) 100, Glucose 84, Calcium 8.4, Troponin I < 0.01 Result diagrams: 10/23/21 12:40 10/23/21 12:40 Orders (Tests/Meds): ED MEDICATIONS Discontinued Medications Generic Name Dose Route Start Last Admin Trade Name Freq PRN Reason Stop Dose Admin Sodium Chloride 10 ml 10/23/21 12:44 Sodium Chloride 0.9% 10ml Flush Syringe IV 11/22/21 12:43 NEEDED PRN Maintain IV Site Chest Pain HPI - General Chief Complaint: Chest Pain Stated Complaint: chest pain Time Seen by Provider: 10/23/21 13:27 Mode of Arrival: Ambulatory Limitations: No Limitations Description of Symptoms (Recalled from ER Triage Doc. by RN): c/o bilateral chest pain that goes down his sides that started last night with a LOERA - History of Present Illness HPI narrative: The patient presents complaining of intermittent chest pain that began last night. Symptoms began while he was at rest watching television reportedly. There were symptoms are described as moderate and lasting on the order of seconds at a time and without exacerbating or alleviating factors. He denies associated shortness of air diaphoresis, nausea or vomiting. He denies radiation of the pain. Presently pain-free. He denies a history of coronary artery disease or DVT or pulmonary embolism. - Related Data Previous Rx's Medication Instructions Recorded triamcinolone acetonide 0.025 % 1 applic TOPICAL BID 7 Days #80 g 03/26/21 topical cream Azithromycin [Z-Guilherme 250mg Tab] 250 mg PO DIRECTED #6 tab 07/19/21 methylPREDNISolone [Medrol 4mg 4 mg PO DIRECTED #21 tab 07/19/21 tab] Ibuprofen [Ibuprofen 600mg 60
[2021-10-23 13:30] VITALS: BP 112/72; PULSE 74; O2SAT 98
--- NOTE | 2021-10-23 13:54 | PC.NURSE ---
Rounded on pt at this time. Pt Resting comfortably in the bed. pt voices no needs
[2021-10-23 14:00] VITALS: BP 110/69; PULSE 63; O2SAT 99
--- NOTE | 2021-10-23 14:11 | PC.NURSE ---
contacting rad to check on status of cxr reading
--- NOTE | 2021-10-23 14:13 | PC.NURSE ---
rad states reports is in preliminary they are going to fax it down to ER
[2021-10-23 14:31] VITALS: BP 111/75; PULSE 76; O2SAT 99
[2021-10-23 14:39] VITALS: BP 111/75; PULSE 66; RESP 22; TEMP 37.1; O2SAT 99
== END 2021-10-23 14:40 | disposition home or self-care (01) ==
PROVIDERS: Emergency Provider Emergency Medicine
DX: R07.9 Chest pain, unspecified (principal); R51.9 Headache, unspecified; Z79.1 Long term (current) use of non-steroidal anti-inflammatories (NSAID); Z82.49 Family history of ischemic heart disease and other diseases of the circulatory system; Z83.3 Family history of diabetes mellitus
CPT/HCPCS: 71046; 80048; 84484; 85025; 93005; 99284

== ENCOUNTER 2022-03-07 13:33 | Emergency (ER) | payer SELFPAY ==
--- NOTE | 2022-03-07 12:56 | ECG_ITS ---
APPROVED REPORT Exam: Resting ECG HR:72 bpm ECG Measurements Heart Rate 72 AXES [place] 187 P 80 QRSd 114 QRS 95 QT 357 T 68 QTc 381 Conclusion SINUS RHYTHM BORDERLINE RIGHT AXIS DEVIATION [QRS AXIS > 90] MODERATE INTRAVENTRICULAR CONDUCTION DELAY [110+ ms QRS DURATION] BORDERLINE ECG UNCONFIRMED REPORT Electronically signed by : Lucian Posey MD 03/08/2022 08:11:51
--- NOTE | 2022-03-07 13:37 | XR_ITS ---
PROCEDURE INFORMATION: Exam: XR Chest Exam date and time: 03/07/2022 1:35 PM Age: 21 years old Clinical indication: Cough and shortness of breath; Chest wall pain; Additional info: SOA, cough, cp TECHNIQUE: Imaging protocol: Radiologic exam of the chest. Views: 2 views. COMPARISON: CR XR CHEST 2V 10/23/2021 1:02 PM FINDINGS: Lungs: Unremarkable. No consolidation. Pleural spaces: Unremarkable. No pleural effusion. No pneumothorax. Heart/Mediastinum: Unremarkable. No cardiomegaly. Bones/joints: Unremarkable. IMPRESSION: No acute findings.
--- NOTE | 2022-03-07 13:38 | HMH.EDGENADL ---
Discharge Plan Disposition Patient Disposition: Home, Self-Care Condition: Good Prescriptions Prescriptions: No Action triamcinolone acetonide 0.025 % cream 1 applic TOPICAL BID 7 Days Qty: 80 0RF azithromycin 250 MG tablet 250 mg PO DIRECTED Qty: 6 0RF Rx Instructions: Take two (2) tablets on day #1, then one (1) tablet day #2 thru #5 methylprednisolone 4 MG tablet 4 mg PO DIRECTED Qty: 21 0RF Rx Instructions: Take as directed on package instructions methocarbamol 500 MG tablet 500 mg PO BID PRN (Reason: Muscle Spasm) Qty: 20 0RF ibuprofen 600 MG tablet 600 mg PO Q6HP PRN (Reason: Moderate Pain) Qty: 20 0RF Referrals Follow up/Referrals: Provider,Referral, [Primary Care Provider] - See instructions Activity Restrictions/Add. Instructions Additional Instructions/Restrictions: You were evaluated in the emergency department today. Please take Tylenol and ibuprofen at home as needed for symptoms. You may also take [id number] cough medicine for cough. Follow-up with your primary care provider over the next 48 hours. Return to the emergency department for any new or worsening symptoms. Clinical Impressions Clinical Impression: Viral syndrome, Acute costochondritis Chest pain Qualifiers: Chest pain type: unspecified Qualified Code(s): R07.9 - Chest pain, unspecified Stand Alone Forms Stand Alone Forms: Work/School Release Instructions Patient Instructions: DI for Cough -- Adult, DI for Costochondritis Discharge ED Provider: Priya Calloway General Adult HPI General Chief complaint: Chest Pain Stated complaint: chest pain Time Seen by Provider: 03/07/22 13:41 Mode of Arrival: Ambulatory Source of Information: Patient History of Present Illness HPI narrative: This patient is a 21-year-old male with no significant past medical history presented to the emergency department for evaluation of left-sided chest wall pain that radiates around his left side.? He states that he initially developed cough and shortness of breath approximately 2 weeks ago, and his cough and chest pain have worsened since then.? He states that he feels short of breath whenever he is coughing, and he coughs to the point of vomiting.? His pain is present with movements and coughing.? He states that he did have a fever yesterday.? He denies any abdominal pain, changes in bowel movements, rashes, or swelling.? Nothing seems to make his symptoms better or worse. Related Data Previous Rx's Medication Instructions Recorded triamcinolone acetonide 0.025 % 1 applic topical BID 7 days #80 03/26/21 topical cream grams azithromycin 250 mg tablet 250 mg PO DIRECTED #6 tabs 07/19/21 methylprednisolone 4 mg tablet 4 mg PO DIRECTED #21 tabs 07/19/21 ibuprofen 600 mg tablet 600 mg PO Q6HP PRN Moderate Pain 09/28/21 #20 tabs methocarbamol 500 mg tablet 500 mg PO BID PRN Muscle Spasm #20 09/28/21 tabs Allergies Allergy/AdvReac Type Severity Reaction Status Date / Time No Known Allergies Allergy Verified 03/26/21 16:19 [facility] Disclaimer: The information contained in this section may have been updated after the patient was seen, as this information can be updated by other users. Social History Smoking Status: Current every day smoker alcohol intake: never substance use type: denies use current occupational status: other Travel in the last 8 weeks: None household members: family housing: house ROS Obtained: Yes All systems reviewed & no additional complaints except as documented 14 point review of systems obtained and negative except as mentioned in HPI. Physical Exam General General appearance: alert and in no apparent distress Head Head exam: atraumatic and normocephalic Eye Eye exam: Present normal appearance, PERRL and EOMI ENT ENT exam: Present normal exam and normal oropharynx Neck Neck exam: P
--- NOTE | 2022-03-07 13:43 | PC.NURSE ---
pt ambulatory to radiology
[2022-03-07 13:56] VITALS: BMI 27.3
[2022-03-07 14:05] LABS: Basophils # 0.1 K/mm3 (0-0.2); Basophils % 1.2 % (0.1-2.0); Eosinophils # 0.2 K/mm3 (0.0-0.4); Eosinophils % 2.9 % (0.1-12.0); Hematocrit 42.9 % (42.0-52.0); Hemoglobin 13.8 g/dL (14.1-18.0); Lymphocytes # 1.7 K/mm3 (0.7-4.5); Lymphocytes % 22.7 % (10-50); Mean Corpuscular HGB Conc 32.2 g/dL (31.8-35.4); Mean Corpuscular Hemoglobin 26.9 pg (27.0-31.2); Mean Corpuscular Volume 83.6 fl (80-94); Monocytes # 0.6 K/mm3 (0.1-1.0); Monocytes % 7.6 % (1.7-9.3); Neutrophils % 65.5 % (37.0-80.0); Platelet Count 257 K/mm3 (142-424); Red Blood Count 5.14 M/mm3 (4.60-6.20); White Blood Count 7.6 K/mm3 (4.8-10.8)
[2022-03-07 14:18] LABS: Chloride 102 mmol/L (98-107); Potassium 3.6 mmoL/L (3.5-5.1); Sodium 139 mmol/L (136-145)
[2022-03-07 14:21] LABS: Anion Gap 10.6 mEq/L (5-15); Blood Urea Nitrogen 11 mg/dl (9-20); Carbon Dioxide 30 mmol/L (22.0-30.0); Creatinine Clearance Estimated 170 mL/min (50-200); Estimated Glomerular Filt Rate 120 ml/min (>60); GFR (African American) 145 ML/MIN (>60); Glucose 93 mg/dl (74-100)
[2022-03-07 14:39] LABS: Troponin I < 0.01 ng/ml (0.00-0.034)
[2022-03-07 14:45] VITALS: BP 137/83; PULSE 100; RESP 16; TEMP 36.8; O2SAT 100; BMI 18.4
[2022-03-07 14:47] VITALS: BP 120/82; PULSE 82; RESP 18; TEMP 36.8
== END 2022-03-07 14:48 | disposition home or self-care (01) ==
PROVIDERS: Emergency Provider Emergency Medicine
DX: M94.0 Chondrocostal junction syndrome [Tietze] (principal); B34.9 Viral infection, unspecified; R07.89 Other chest pain; F17.210 Nicotine dependence, cigarettes, uncomplicated
CPT/HCPCS: 71046; 80048; 84484; 85025; 93005; 96361; 96374; 96375; 99285; J2405

== ENCOUNTER 2022-05-11 13:05 | Emergency (ER) | payer SELFPAY ==
[2022-05-11 13:30] VITALS: BP 126/77; PULSE 71; RESP 20; TEMP 36.7; O2SAT 98; BMI 25.1
--- NOTE | 2022-05-11 13:47 | EXP.UTC ---
Discharge Plan Disposition Patient Disposition: Home, Self-Care Condition: Good Prescriptions Prescriptions: New ofloxacin 0.3 % drops See Rx Instructions .ROUTE .COMPLEX Qty: 10 0RF Rx Instructions: put 2 drps into both eyes every 2 h x 2 days, then 2 drps 4 times/day days 3-7 Referrals Follow up/Referrals: Provider,Referral, MD [Primary Care Provider] - See instructions Activity Restrictions/Add. Instructions Additional Instructions/Restrictions: Use the eye drops as directed. Strict hand washing in the house hold, because conjunctivitis is very contagious. Follow up with your regular doctor. GO TO THE ER FOR ANY WORSENING SYMPTOMS OR CONCERNS Clinical Impressions Clinical Impression: Conjunctivitis Stand Alone Forms Stand Alone Forms: Work/School Release Instructions Patient Instructions: How to Instill Eye Drops, DI for Conjunctivitis Discharge ED Provider: Mika Carr [facility] General Stated complaint: Eye redness w/drainage Mode of Arrival: Ambulatory Source of Information: Patient Limitations: No Limitations Time Seen by Provider: 05/11/22 13:46 Description of Symptoms (Recalled from Triage Doc. by RN): Got something in ete at work and followed by eye drainage HEENT Symptoms (Recalled from RN notes): Yes Resp Symptoms (Recalled from RN notes): No Skin Symptoms (Recalled from RN notes): No MS Symptoms (Recalled from RN notes): No Functional Status (Recalled from RN notes): n/a Related Data Previous Rx's Medication Instructions Recorded ofloxacin 0.3 % eye drops See Rx Instructions ophthalmic 05/11/22 (eye) .COMPLEX #10 mL Allergies Allergy/AdvReac Type Severity Reaction Status Date / Time No Known Allergies Allergy Verified 05/11/22 13:47 Worker's Comp Is this a Worker's Comp case?: No [facility] Disclaimer: The information contained in this section may have been updated after the patient was seen, as this information can be updated by other users. Social History Smoking Status: Current every day smoker alcohol intake: never substance use type: denies use current occupational status: other Travel in the last 8 weeks: None household members: family housing: house ROS Obtained: Yes All systems reviewed & no additional complaints except as documented Constitutional Constitutional: Denies chills and Denies fever(s) Eyes Eyes: Reports eye discharge ENT Ears, Nose, Mouth, and Throat: Denies dizziness, Denies otalgia and Denies sore throat Cardiovascular Cardiovascular: Denies chest pain Respiratory Respiratory: Denies shortness of breath, Denies chest congestion, Denies cough, Denies stridor and Denies wheezing Gastrointestinal Gastrointestingal: Denies nausea or vomiting Musculoskeletal Musculoskeletal: Reports system reviewed and no additional complaints, except as documented and Denies arthralgias Integumentary/Breasts Skin/Breast: Denies rash Neurologic Neurologic: Denies dizziness and Denies paresthesias Allergic/Immunologic Allergic/Immunologic: Denies wheezing Physical Exam General General appearance: alert and in no apparent distress Head Head exam: atraumatic, normocephalic and normal inspection Eye Eye exam: Present PERRL, EOMI, conjunctival redness, conjunctival injection and discharge ENT ENT exam: Present normal exam, normal oropharynx, mucous membranes moist, TM's normal bilaterally and normal external ear exam Neck Neck exam: Present normal inspection, full ROM and trachea midline; Absent meningismus or lymphadenopathy Chest Chest inspection: Present normal inspection and symmetric chest wall rise; Absent tenderness Respiratory Respiratory exam: Present normal lung sounds bilaterally; Absent respiratory distress Cardiovascular Cardiovascular exam: Present regular rate and normal rhythm; Absent JVD Abdominal Exam Abdominal exam: Present soft and normal bowel sounds; A
[2022-05-11 14:47] VITALS: BP 126/77; PULSE 71; RESP 20; TEMP 36.7; O2SAT 98
== END 2022-05-11 14:46 | disposition home or self-care (01) ==
PROVIDERS: Emergency Provider Nurse Practitioner Family
DX: H10.9 Unspecified conjunctivitis (principal)
CPT/HCPCS: 99212; 99214; G0463

== ENCOUNTER 2022-06-27 10:25 | Emergency (ER) | payer SELFPAY ==
[2022-06-27 10:25] VITALS: BP 112/65; PULSE 63; RESP 18; TEMP 36.7; O2SAT 100; BMI 24.7
--- NOTE | 2022-06-27 10:36 | EXP.UTC ---
Discharge Plan Disposition Patient Disposition: Home, Self-Care Condition: Good Prescriptions Prescriptions: New ibuprofen [IBU] 800 mg tablet 800 mg PO Q8HP PRN (Reason: Moderate Pain) Qty: 30 0RF ibuprofen [IBU] 800 mg tablet 800 mg PO Q8HP PRN (Reason: Moderate Pain) Qty: 30 0RF cyclobenzaprine 10 mg Tablet 10 mg PO BID PRN (Reason: Muscle Spasm) Qty: 20 0RF Referrals Follow up/Referrals: Provider,Referral, MD [Primary Care Provider] - See instructions Activity Restrictions/Add. Instructions Additional Instructions/Restrictions: Go home and rest. It would be best if you rested tomorrow too. No heavy lifting. No twisting. Take the oral medications as directed. The muscle relaxer (cyclobenzaprine--Flexeril) will make you drowsy, so don't drive or operate heavy machinery after taking it. Follow up with your regular doctor. GO TO THE ER FOR ANY WORSENING SYMPTOMS OR CONCERN, ESPECIALLY BOWEL OR BLADDER ISSUES, SADDLE AREA NUMBNESS, FEVER, ETC Clinical Impressions Clinical Impression: Back pain, Contusion of back Stand Alone Forms Stand Alone Forms: Work/School Release Discharge ED Provider: Mika Carr [facility] General Stated complaint: AO@work 06/27 329 Back pain Time Seen by Provider: 06/27/22 10:36 History of Present Illness Provider Complaint: He states that a heavy piece of concrete fell out of the back of his truck and brushed his back as it fell. He states that he has had right sided low back pain where the concrete made contact with him. He denies any other injury. Related Data Previous Rx's Medication Instructions Recorded cyclobenzaprine 10 mg tablet 10 mg PO BID PRN Muscle Spasm #20 06/27/22 tabs ibuprofen 800 mg tablet (IBU) 800 mg PO Q8HP PRN Moderate Pain 06/27/22 #30 tabs ibuprofen 800 mg tablet (IBU) 800 mg PO Q8HP PRN Moderate Pain 06/27/22 #30 tabs Allergies Allergy/AdvReac Type Severity Reaction Status Date / Time No Known Allergies Allergy Verified 06/27/22 10:43 [facility] Disclaimer: The information contained in this section may have been updated after the patient was seen, as this information can be updated by other users. Social History Smoking Status: Current every day smoker alcohol intake: never substance use type: denies use current occupational status: other Travel in the last 8 weeks: None household members: family housing: house ROS Obtained: Yes All systems reviewed & no additional complaints except as documented Constitutional Constitutional: Denies chills and Denies fever(s) Eyes Eyes: Denies eye discharge ENT Ears, Nose, Mouth, and Throat: Denies dizziness, Denies otalgia and Denies sore throat Cardiovascular Cardiovascular: Denies chest pain Respiratory Respiratory: Denies shortness of breath, Denies chest congestion, Denies cough, Denies stridor and Denies wheezing Gastrointestinal Gastrointestingal: Denies nausea or vomiting Musculoskeletal Musculoskeletal: Reports as per HPI Integumentary/Breasts Skin/Breast: Denies rash Neurologic Neurologic: Denies dizziness and Denies paresthesias Allergic/Immunologic Allergic/Immunologic: Denies wheezing Physical Exam General General appearance: alert and in no apparent distress Head Head exam: atraumatic, normocephalic and normal inspection Eye Eye exam: Present normal appearance, PERRL and EOMI ENT ENT exam: Present normal exam, normal oropharynx, mucous membranes moist, TM's normal bilaterally and normal external ear exam Neck Neck exam: Present normal inspection, full ROM and trachea midline; Absent meningismus or lymphadenopathy Chest Chest inspection: Present normal inspection and symmetric chest wall rise; Absent tenderness Respiratory Respiratory exam: Present normal lung sounds bilaterally; Absent respiratory distress Cardiovascular Cardiovascular exam: Present regular rate and normal rhythm;
--- NOTE | 2022-06-27 11:23 | XR_ITS ---
FINAL REPORT CLINICAL HISTORY: hit on back with concrete, low back pain. FINDINGS: LUMBAR SPINE Five views were obtained. There is no acute fracture. There is mild leftward curvature. The disc spaces are preserved. There is no soft tissue abnormality. IMPRESSION: No acute bony abnormality. Reviewed, Interpreted and Dictated by Pierce Underwood III, MD Transcribed by Starla Jett Authenticated and [facility]
--- NOTE | 2022-06-27 11:23 | XR_ITS ---
FINAL REPORT CLINICAL HISTORY: hit on back with concrete, back pain. FINDINGS: THORACIC SPINE 2 views were obtained. There is no acute fracture. There is mild rightward curvature. The disc spaces are preserved. There is no soft tissue abnormality. IMPRESSION: No acute bony abnormality. Reviewed, Interpreted and Dictated by Pierce Underwood III, MD Transcribed by Starla Jett Authenticated and . [facility]
[2022-06-27 12:12] VITALS: BP 112/65; PULSE 63; RESP 18; TEMP 36.7; O2SAT 100
== END 2022-06-27 12:12 | disposition home or self-care (01) ==
PROVIDERS: Emergency Provider Nurse Practitioner Family
DX: S30.0XXA Contusion of lower back and pelvis, initial encounter (principal); W20.8XXA Other cause of strike by thrown, projected or falling object, initial encounter; F17.200 Nicotine dependence, unspecified, uncomplicated
CPT/HCPCS: 72072; 72110; 99212; 99214; G0463

== ENCOUNTER 2022-10-03 15:08 | Emergency (ER) | payer SELFPAY ==
[2022-10-03 15:14] VITALS: BP 112/76; PULSE 73; RESP 19; TEMP 38; O2SAT 99; BMI 26.6
--- NOTE | 2022-10-03 15:40 | EXP.UTC ---
Discharge Plan Disposition Patient Disposition: Home, Self-Care Condition: Good Prescriptions Prescriptions: New ibuprofen [IBU] 800 mg tablet 800 mg PO Q8HP PRN (Reason: Moderate Pain) Qty: 30 0RF amoxicillin-pot clavulanate 875-125 mg Tablet 1 tab PO Q12H Qty: 20 0RF Referrals Follow up/Referrals: Provider,Referral, [Primary Care Provider] - See instructions Activity Restrictions/Add. Instructions Additional Instructions/Restrictions: Take the medications as directed. Follow up with your regular doctor. Follow up with a dentist. GO TO THE ER FOR ANY WORSENING SYMPTOMS Clinical Impressions Clinical Impression: Dental abscess Stand Alone Forms Stand Alone Forms: Work/School Release Instructions Patient Instructions: Tooth Abscess, DI for Tooth Abscess Discharge ED Provider: Mika Carr [facility] General Stated complaint: trouble eating Mode of Arrival: Ambulatory Source of Information: Patient Limitations: No Limitations Time Seen by Provider: 10/03/22 15:40 Description of Symptoms (Recalled from Triage Doc. by RN): left side jaw pain, swollen HEENT Symptoms (Recalled from RN notes): No Resp Symptoms (Recalled from RN notes): No Skin Symptoms (Recalled from RN notes): No MS Symptoms (Recalled from RN notes): No Functional Status (Recalled from RN notes): no History of Present Illness Provider Complaint: He states that he has had left lower jaw dental pain for the past 5 days. Related Data Previous Rx's Medication Instructions Recorded amoxicillin 875 mg-potassium 1 tab PO Q12H #20 tabs 10/03/22 clavulanate 125 mg tablet ibuprofen 800 mg tablet (IBU) 800 mg PO Q8HP PRN Moderate Pain 10/03/22 #30 tabs Allergies Allergy/AdvReac Type Severity Reaction Status Date / Time No Known Allergies Allergy Verified 10/03/22 15:10 Worker's Comp Is this a Worker's Comp case?: No [facility] Disclaimer: The information contained in this section may have been updated after the patient was seen, as this information can be updated by other users. Medical History No significant past medical history Surgical History No significant past surgical history Family History Other No significant family history Social History Smoking Status: Current every day smoker alcohol intake: never substance use type: denies use current occupational status: other Travel in the last 8 weeks: None household members: family housing: house ROS Obtained: Yes All systems reviewed & no additional complaints except as documented Constitutional Constitutional: Denies chills and Denies fever(s) Eyes Eyes: Denies eye discharge ENT Ears, Nose, Mouth, and Throat: Reports as per HPI, Denies dizziness, Denies otalgia and Denies sore throat Cardiovascular Cardiovascular: Denies chest pain Respiratory Respiratory: Denies shortness of breath, Denies chest congestion, Denies cough, Denies stridor and Denies wheezing Gastrointestinal Gastrointestingal: Denies nausea or vomiting Musculoskeletal Musculoskeletal: Reports system reviewed and no additional complaints, except as documented and Denies arthralgias Integumentary/Breasts Skin/Breast: Denies rash Neurologic Neurologic: Denies dizziness and Denies paresthesias Allergic/Immunologic Allergic/Immunologic: Denies wheezing Physical Exam General General appearance: alert and in no apparent distress Head Head exam: atraumatic, normocephalic and normal inspection Eye Eye exam: Present normal appearance, PERRL and EOMI ENT ENT exam: Present mucous membranes moist, TM's normal bilaterally and normal external ear exam Expanded ENT Exam Nose exam: Absent sinus tenderness Nasal speculum exam: Bilateral: normal Mouth exam: Present n
[2022-10-03 15:52] VITALS: BP 112/76; PULSE 73; RESP 16; TEMP 38; O2SAT 99
== END 2022-10-03 15:54 | disposition home or self-care (01) ==
PROVIDERS: Emergency Provider Nurse Practitioner Family
DX: R68.84 Jaw pain (principal); K04.7 Periapical abscess without sinus; F17.210 Nicotine dependence, cigarettes, uncomplicated; R50.9 Fever, unspecified
CPT/HCPCS: 99212; 99214; G0463

== ENCOUNTER 2023-12-27 08:06 | Emergency (ER) | payer SELFPAY ==
--- NOTE | 2023-12-27 08:14 | XR_ITS ---
PROCEDURE INFORMATION: Exam: XR Right Ribs with PA Chest Exam date and time: 12/27/2023 8:16 AM Age: 23 years old Clinical indication: Other: Right rib pain; Additional info: Fall w pain TECHNIQUE: Imaging protocol: Radiologic exam of the right ribs with PA chest. Views: 3 views COMPARISON: CR XR CHEST 2V 03/07/2022 1:35 PM FINDINGS: Lungs: No acute cardiopulmonary abnormality. Pleural spaces: Unremarkable. No pleural effusion. No pneumothorax. Heart/Mediastinum: Unremarkable. No cardiomegaly. Bones/joints: No appreciable rib or other osseous fracture. IMPRESSION: 1. No appreciable rib or other osseous fracture. 2. No acute cardiopulmonary abnormality.
[2023-12-27 08:23] VITALS: BP 125/72; PULSE 63; RESP 20; TEMP 36.7; O2SAT 99; BMI 27.1
--- NOTE | 2023-12-27 08:23 | ED_ITS ---
Discharge Plan Disposition Patient Disposition: Home, Self-Care Condition: Good Prescriptions Prescriptions: New ibuprofen [IBU] 800 mg tablet 800 mg PO Q8HP PRN (Reason: Moderate Pain) Qty: 30 0RF cyclobenzaprine 10 mg Tablet 10 mg PO BID PRN (Reason: Muscle Spasm) Qty: 20 0RF Referrals Follow up/Referrals: Provider,Referral, MD [Primary Care Provider] - See instructions Activity Restrictions/Add. Instructions Additional Instructions/Restrictions: Go home and rest. It would be best if you rested tomorrow too. No heavy lifting & No twisting for the next 2 days. The muscle relaxer (cyclobenzaprine--Flexeril) will make you drowsy, so don't drive or operate heavy machinery after taking it. Follow up with your regular doctor. GO TO THE ER FOR ANY WORSENING SYMPTOMS OR CONCERN, ESPECIALLY BOWEL OR BLADDER ISSUES, SADDLE AREA NUMBNESS, FEVER, ETC Clinical Impressions Clinical Impression: Contusion of rib on right side, Rib pain on right side Stand Alone Forms Stand Alone Forms: Work/School Release Instructions Patient Instructions: DI for Rib Contusion, Cyclobenzaprine Print Language Print Language: Tuvaluan Discharge ED Provider: Mika Carr [facility] General Stated complaint: AO 12/19 right Side pain Time Seen by Provider: 12/27/23 08:23 Related Data Previous Rx's ?Medication ?Instructions ?Recorded cyclobenzaprine 10 mg tablet 10 mg PO BID PRN Muscle Spasm #20 12/27/23 tabs ibuprofen 800 mg tablet (IBU) 800 mg PO Q8HP PRN Moderate Pain 12/27/23 #30 tabs Allergies Allergy/AdvReac Type Severity Reaction Status Date / Time No Known Allergies Allergy Verified 10/03/22 15:10 [facility] Disclaimer: The information contained in this section may have been updated after the patient was seen, as this information can be updated by other users. Medical History No significant past medical history Surgical History No significant past surgical history Family History Other No significant family history Social History Smoking Status: Current every day smoker alcohol intake: never substance use type: denies use current occupational status: other Travel in the last 8 weeks: None household members: family housing: house ROS Obtained: Yes All systems reviewed & no additional complaints except as documented Constitutional Constitutional: Denies chills and Denies fever(s) Eyes Eyes: Denies eye discharge ENT Ears, Nose, Mouth, and Throat: Denies dizziness, Denies otalgia and Denies sore throat Cardiovascular Cardiovascular: Reports as per HPI and Denies chest pain Respiratory Respiratory: Denies shortness of breath, Denies chest congestion, Denies cough, Denies stridor and Denies wheezing Gastrointestinal Gastrointestingal: Denies abdominal pain, nausea or vomiting Genitourinary Male Genitourinary: Denies difficulty urinating Musculoskeletal Musculoskeletal: Reports as per HPI Integumentary/Breasts Skin/Breast: Denies redness, Denies rash, Denies unusual bruising and Denies wounds Neurologic Neurologic: Denies dizziness and Denies paresthesias Allergic/Immunologic Allergic/Immunologic: Denies wheezing Physical Exam General General appearance: alert and in no apparent distress Head Head exam: atraumatic, normocephalic and normal inspection Eye Eye exam: Present normal appearance, PERRL and EOMI ENT ENT exam: Present normal exam, normal oropharynx, mucous membranes moist, TM's normal bilaterally and normal external ear exam Neck Neck exam: Present normal inspection, full ROM and trachea midline; Absent meningismus or lymphadenopathy Chest Chest inspection: Present symmetric chest wall rise and tenderness Respiratory Respiratory exam: Present normal lung sounds bilaterally; Absent respiratory distress Cardiovascular Cardiovascular exam: Present regular rate and normal rhythm; Absent JVD Abdominal Exam Abdominal exam: Present soft and normal bowel sounds; Absent distention, tenderness or guarding Extremities Exam Extremities exam: Present normal inspection, full ROM and normal capillary refill; Absent calf tenderness Back Exam Back exam: Present normal inspection; Absent tenderness Neurological Exam Neurological exam: Present alert and oriented X3 Psychiatric Psychiatric exam: Present normal affect and normal mood Skin Skin exam: Present warm, dry, intact and normal color Lymphatic Lymphatic Findings: no adenopathy Medical Decision Making Medical Records Medical records reviewed: No I reviewed the patient's medical records. Screening: Per USPSTF and CDC recommendations, given the prevalence of disease in our region, it is our hospital?s policy to screen for HIV and viral Hepatitis for all patients aged 18 and over and those with ongoing risk factors. Eduardo Inquiry Pt receiving controlled substance: No Orders (Tests/Meds): ORDERS Category Date Time Status XR ribs RT min 3V w CXR1V Stat Exams 12/27/23 08:14 Ordered Radiology Data #1: Image(s): Chest (ribs) Image Reviewed: Yes I reviewed the patient's radiology image and Yes I have reviewed radiologist's interpretation Preliminary Findings: No Fracture Seen Accession No. 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 Views: 3 views COMPARISON: CR XR CHEST 2V 03/07/2022 1:35 PM FINDINGS: Lungs: No acute cardiopulmonary abnormality. Pleural spaces: Unremarkable. No pleural effusion. No pneumothorax. Heart/Mediastinum: Unremarkable. No cardiomegaly. Bones/joints: No appreciable rib or other osseous fracture. IMPRESSION: 1. No appreciable rib or other osseous fracture. 2. No acute cardiopulmonary abnormality.
[2023-12-27 09:00] VITALS: BP 125/72; PULSE 63; RESP 20; TEMP 36.7
== END 2023-12-27 09:03 | disposition home or self-care (01) ==
PROVIDERS: Emergency Provider Nurse Practitioner Family
DX: S20.211A Contusion of right front wall of thorax, initial encounter (principal); X58.XXXA Exposure to other specified factors, initial encounter
CPT/HCPCS: 71101; 99213; G0381

== ENCOUNTER 2024-01-08 08:07 | Emergency (ER) | payer SELFPAY ==
[2024-01-08 08:08] VITALS: BP 150/100; PULSE 70; RESP 18; TEMP 36.8; O2SAT 98; BMI 28.0
[2024-01-08 08:28] LABS: Microscopic, Urine URINE MICROSCOPIC (MICROSCOPIC)
--- NOTE | 2024-01-08 08:38 | HMH.EDGENADL ---
Discharge Plan Disposition Patient Disposition: Home, Self-Care Condition: Good Prescriptions Prescriptions: New promethazine 25 mg tablet 25 mg PO Q6H PRN (Reason: nausea and vomiting) Qty: 12 0RF No Action ibuprofen [IBU] 800 mg tablet 800 mg PO Q8HP PRN (Reason: Moderate Pain) Qty: 30 0RF cyclobenzaprine 10 mg Tablet 10 mg PO BID PRN (Reason: Muscle Spasm) Qty: 20 0RF Referrals Follow up/Referrals: Provider,Referral, [Primary Care Provider] - See instructions Activity Restrictions/Add. Instructions Additional Instructions/Restrictions: You were evaluated in the emergency department today. Please cotton picker your prescription for Phenergan at the pharmacy and take as needed for nausea and vomiting. Orally hydrate. Eat a bland diet until your symptoms have resolved. Follow-up closely with your primary care provider. Return to the emergency department for new or worsening symptoms Clinical Impressions Clinical Impression: Gastroenteritis Stand Alone Forms Stand Alone Forms: Work/School Release Instructions Patient Instructions: DI for Viral Gastroenteritis -- Adult, DI for Acute Abdominal Pain, DI for Bacterial Gastroenteritis -- Adult Print Language Print Language: Ivorian Discharge ED Provider: Priya Calloway General Adult HPI General Chief complaint: Abdominal Pain Stated complaint: back and stomach pain vomiting Time Seen by Provider: 01/08/24 08:24 Mode of Arrival: Ambulatory Source of Information: Patient Limitations: No Limitations Description of Symptoms (Recalled from ER Triage Doc. by RN): pt describes left flank pain that started last night around 8 pm and raiates around front that comes in waves, pt has never had any belly surgery but does have family hx of kidney stones. pt states the pain is sharp 9/10 and causes nausea History of Present Illness HPI narrative: This patient is a 23-year-old male who denies significant past medical history presenting to the emergency department for evaluation with concern for left flank pain radiating around to his abdomen. He reports that it started last night and is intermittent. It is sharp and stabbing. Nothing seems to make it better or worse. He tried Tylenol and Advil without good improvement. He also notes associated nausea and vomiting. No fevers, chills, changes bowel movements, or other concerns. He denies experiencing anything like this in the past and denies any prior abdominal surgeries. Related Data Previous Rx's ?Medication ?Instructions ?Recorded cyclobenzaprine 10 mg tablet 10 mg PO BID PRN Muscle Spasm #20 12/27/23 tabs ibuprofen 800 mg tablet (IBU) 800 mg PO Q8HP PRN Moderate Pain 12/27/23 #30 tabs promethazine 25 mg tablet 25 mg PO Q6H PRN nausea and 01/08/24 vomiting #12 tabs Allergies Allergy/AdvReac Type Severity Reaction Status Date / Time No Known Allergies Allergy Verified 10/03/22 15:10 [facility] Disclaimer: The information contained in this section may have been updated after the patient was seen, as this information can be updated by other users. Medical History No significant past medical history Surgical History No significant past surgical history Family History Other No significant family history Social History Smoking Status: Never smoker alcohol intake: never substance use type: denies use current occupational status: other Travel in the last 8 weeks: None household members: family housing: house Other Medical History Have you received the Flu Vaccine for this season: No Have you received the Pneumonia Vaccine: No ROS Obtained: Yes All systems reviewed & no additional complaints except as documented Physical Exam General General appearance: alert and in no apparent distress Head Head exam: atraumatic and normocephalic Eye Eye exam: Present normal appearance, PERRL and EOMI ENT ENT exam: Present normal exam, normal oropharynx, mucous membranes moist and normal external ear exam Neck Neck exam: Present normal inspection, full ROM and trachea midline; Absent tenderness Chest Chest inspection: Present normal inspection and symmetric chest wall rise; Absent tenderness Respiratory Respiratory exam: Present normal lung sounds bilaterally; Absent respiratory distress, wheezes, stridor or accessory muscle use Cardiovascular Cardiovascular exam: Present regular rate and normal rhythm Abdominal Exam Abdominal exam: Present soft; Absent distention, tenderness or guarding Extremities Exam Extremities exam: Present normal inspection, full ROM and normal capillary refill; Absent tenderness or edema Back Exam Back exam: Present full ROM and CVA tenderness (L); Absent tenderness, muscle spasm or paraspinal tenderness Neurological Exam Neurological exam: Present alert, oriented X3, CN II-XII intact and normal gait; Absent motor sensory deficit Psychiatric Psychiatric exam: Present normal affect and normal mood Skin Skin exam: Present warm and dry Medical Decision Making Medical Records Medical records reviewed: Yes I reviewed the patient's medical records. Screening: Per USPSTF and CDC recommendations, given the prevalence of disease in our region, it is our hospital?s policy to screen for HIV and viral Hepatitis for all patients aged 18 and over and those with ongoing risk factors. Eduardo Inquiry Pt receiving controlled substance: No Vital Signs: 01/08/24 08:08 01/08/24 10:03 01/08/24 11:44 Temperature 98.2 F 98.2 F Temperature Source Oral Pulse Rate 83 76 Pulse Rate [Right Radial] 70 Respiratory Rate 18 18 Blood Pressure 144/91 H 148/90 H Blood Pressure [Right Arm] 150/100 H Blood Pressure Mean [Right Arm] 116 02 Sat by Pulse Oximetry 98 100 Oxygen Delivery Method Room Air Lab Data Lab results reviewed: Yes I reviewed the patient's lab results. Lab Results 01/08/24 08:14: Urine Color Yellow, Urine Appearance Clear, Urine pH 6.5, Ur Specific [place] 1.020, Urine Protein Negative, Urine Glucose (UA) Negative, Urine Ketones Negative, Urine Blood Negative, Urine Nitrate Negative, Urine Bilirubin Negative, Urine Urobilinogen 0.2, Ur Leukocyte Esterase Negative, Urine RBC None, Urine WBC Occasional, Ur Squamous Epith Cells None, Urine Bacteria Trace 01/08/24 08:22: WBC 8.2, RBC 5.45, Hgb 16.1, Hct 45.9, MCV 84.3, MCH 29.5, MCHC 35.0, RDW 13.0, Plt Count 323, MPV 7.0 L, Neut % (Auto) 80.2 H, Lymph % (Auto) 13.6, Oliver % (Auto) 4.6, Eos % (Auto) 1.1, Baso % (Auto) 0.5, Neut # (Auto) 6.6, Lymph # (Auto) 1.1, Oliver # (Auto) 0.4, Eos # (Auto) 0.1, Baso # (Auto) 0.0, Sodium 138, Potassium 4.7, Chloride 102, Carbon Dioxide 30, Anion Gap 10.7, BUN 12, Creatinine 1.00, Estimated Creat Clear 138, Estimated GFR 91, Est GFR ( Amer) 110, Glucose 124 H, Calcium 9.2, Total Bilirubin 0.9, AST 24, ALT 20, Alkaline Phosphatase 59, Total Protein 7.7, Albumin 4.6, Globulin 3.1, Albumin/Globulin Ratio 1.5, Lipase 63 01/08/24 08:22 01/08/24 08:22 Orders (Tests/Meds): ED MEDICATIONS Discontinued Medications Generic Name Dose Route Start Last Admin Trade Name Freq PRN Reason Stop Dose Admin Acetaminophen 1,000 mg 01/08/24 08:37 01/08/24 08:42 Acetaminophen 500mg Tab PO 01/08/24 08:38 1,000 mg ONCE ONE Administration Famotidine 20 mg 01/08/24 08:37 01/08/24 08:43 Famotidine 20mg/2ml Vial IV 01/08/24 08:38 20 mg ONCE ONE Administration Iopamidol 75 ml 01/08/24 09:33 01/08/24 09:34 Iopamidol-370 (76%);100ml Bottle IV 01/08/24 09:34 75 ml ONCE ONE Administration Ketorolac Tromethamine 15 mg 01/08/24 08:37 01/08/24 08:43 Ketorolac 30mg/Ml Vial IV 01/08/24 08:38 15 mg ONCE ONE Administration Ondansetron HCl 4 mg 01/08/24 08:37 01/08/24 08:43 Ondansetron 4mg/2ml Vial IV 01/08/24 08:38 4 mg ONCE ONE Administration Promethazine HCl 12.5 mg 01/08/24 09:23 01/08/24 09:38 Promethazine Hcl 25mg/Ml 1ml Vial IV 01/08/24 09:24 12.5 mg ONCE ONE Administration Sodium Chloride 8 ml 01/08/24 08:37 Sodium Chloride 0.9% 10ml Vial IV 02/07/24 08:36 NEEDED PRN dilute pepcid Sodium Chloride 25 ml 01/08/24 09:23 01/08/24 09:39 Sodium Chloride 0.9% 25ml Bag IV 01/08/24 09:24 25 ml ONCE ONE Administration Sodium Chloride 10 ml 01/08/24 09:33 01/08/24 09:34 Sodium Chloride 0.9% 10ml Syr (Rad Only) IV 01/08/24 09:34 10 ml ONCE ONE Administration ORDERS Category Date Time Status CT abdomen pelvis w con Stat Cat Scan 01/08/24 09:23 Taken Complete Blood Count Auto Diff Stat Lab 01/08/24 08:22 Completed Comprehensive Metabolic Panel Stat Lab 01/08/24 08:22 Completed Lipase Stat Lab 01/08/24 08:22 Completed UA [Urinalysis and Microscopic] Stat Lab 01/08/24 08:14 Completed Medical Decision Narrative: In summary, this patient is a 23-year-old male presenting to the Emergency Department for evaluation of left flank pain radiating around to his abdomen. Differential diagnoses considered include but are not limited to ureterolithiasis, colitis, pyelonephritis, gastritis, peptic ulcer disease. Ruling out the most morbid conditions drove assessment. On exam, the patient is sitting upright in bed in no acute distress. He has left CVA tenderness but otherwise exam is reassuring. Workup included CBC, CMP, lipase, urinalysis. Patient was given IV Toradol, oral Tylenol, IV Zofran, IV Pepcid for symptomatic improvement. On reassessment, patient continued having nausea and vomiting. Labs obtained are reassuring and urine is clear without significant infection. No significant transaminitis or other concern. Given persistent symptoms, decision was made to order CT scan abdomen pelvis with IV contrast. He was given IV Phenergan for further improvement. I independently interpreted CT scan prior to the radiologist read and noted findings concerning for enteritis. Please see their read for final interpretation. Of gastroenteritis. He is given strict return precautions and he was discharged after all questions were answered. After administration of Phenergan, patient was able to tolerate oral intake. Abdominal exam benign. Ultimately, I feel that he is appropriate for discharge home with prescription for Phenergan and instructions for supportive management Critical Care Critical Care Time Critical Care Time: No
[2024-01-08] MEDS: ACETAMINOPHEN 500MG TAB 1000 MG PO (08:42)
[2024-01-08] MEDS: FAMOTIDINE 20MG/2ML VIAL 20 MG IV (08:43)
[2024-01-08] MEDS: ONDANSETRON 4MG/2ML VIAL 4 MG IV (08:43)
[2024-01-08] MEDS: KETOROLAC 30MG/ML VIAL 15 MG IV (08:43)
[2024-01-08 08:44] LABS: Basophils % 0.5 % (0.1-2.0); Eosinophils # 0.1 K/mm3 (0.0-0.4); Eosinophils % 1.1 % (0.1-12.0); Hematocrit 45.9 % (42.0-52.0); Hemoglobin 16.1 g/dL (14.1-18.0); Lymphocytes # 1.1 K/mm3 (0.7-4.5); Lymphocytes % 13.6 % (10-50); Mean Corpuscular Hemoglobin 29.5 pg (27.0-31.2); Mean Corpuscular Volume 84.3 fl (80-94); Monocytes # 0.4 K/mm3 (0.1-1.0); Monocytes % 4.6 % (1.7-9.3); Neutrophils # 6.6 K/mm3 (1.8-7.8); Neutrophils % 80.2 % (37.0-80.0); Platelet Count 323 K/mm3 (142-424); Red Blood Count 5.45 M/mm3 (4.60-6.20); White Blood Count 8.2 K/mm3 (4.8-10.8)
[2024-01-08 08:50] LABS: Alanine Aminotransferase 20 U/L (12-78); Albumin Level 4.6 g/dl (3.5-5.0); Albumin/Globulin Ratio 1.5 (1.1-1.8); Alkaline Phosphatase 59 U/L (38-126); Anion Gap 10.7 mEq/L (5-15); Aspartate Amino Transferase 24 U/L (17-59); Bilirubin,Total 0.9 mg/dl (0.2-1.3); Blood Urea Nitrogen 12 mg/dl (9-20); Calcium 9.2 mg/dl (8.4-10.2); Carbon Dioxide 30 mmol/L (22.0-30.0); Chloride 102 mmol/L (98-107); Creatinine Clearance Estimated 138 mL/min (50-200); Estimated Glomerular Filt Rate 91 ml/min (>60); GFR (African American) 110 ML/MIN (>60); Globulin 3.1 g/dL (1.3-3.2); Glucose 124 mg/dl (74-100); Lipase 63 U/L (23-300); Potassium 4.7 mmoL/L (3.5-5.1); Sodium 138 mmol/L (136-145); Total Protein,Serum 7.7 g/dl (6.3-8.2)
[2024-01-08 08:52] LABS: Appearance,Urine CLEAR (Clear); Bilirubin,Urine Negative (Negative); Blood, Urine Negative (Negative); Color,Urine YELLOW (Yellow); Glucose,Urine (UA) Negative (Negative); Ketones,Urine Negative (Negative); Leukocyte Esterase,Urine Negative (Negative); Nitrate,Urine Negative (Negative); PH,Urine 6.5 (5.0-8.5); Protein,Urine Negative (Negative); Urobilinogen,Urine 0.2 EU/dl (0.2)
[2024-01-08 09:00] LABS: Bacteria,Urine Trace /lpf; WBC,Urine Occasional #/hpf (0-3)
--- NOTE | 2024-01-08 09:23 | CT_ITS ---
FINAL REPORT TECHNIQUE: Postcontrast axial images through the abdomen and pelvis were performed. This study was performed with techniques to keep radiation doses as low as reasonably achievable, (ALARA). Individualized dose reduction techniques using automated exposure control or adjustment of mA and/or kV according to the patient's size were employed. CLINICAL HISTORY: back/abd pain, intractable n/v FINDINGS: Abdomen: The lung bases are clear. The liver is normal in size and attenuation. The spleen is unremarkable. The adrenals are normal. The pancreas is unremarkable. The kidneys enhance appropriately. The aorta is normal in caliber. No free fluid or adenopathy is identified. No findings for mechanical bowel obstruction are identified. Pelvis: The appendix is not identified. There are several fluid-filled small bowel loops are nonspecific, may represent ileus or enteritis. The urinary bladder is unremarkable. No free fluid, free air, abscess or adenopathy is identified. IMPRESSION: Several fluid filled small bowel loops, may represent ileus or enteritis. Reviewed, Interpreted and Dictated by Pierce Underwood III, MD Transcribed by Nivia Mustafa Authenticated and [facility]
[2024-01-08] MEDS: SODIUM CHLORIDE 0.9% 10ML SYR (RAD ONLY) 10 ML IV (09:34)
[2024-01-08] MEDS: IOPAMIDOL-370 (76%);100ML BOTTLE 75 ML IV (09:34)
[2024-01-08] MEDS: PROMETHAZINE HCL 25MG/ML 1ML VIAL 12.5 MG IV (09:38)
[2024-01-08] MEDS: SODIUM CHLORIDE 0.9% 25ML BAG 25 ML IV (09:39)
[2024-01-08 10:03] VITALS: BP 144/91; PULSE 83; O2SAT 100
[2024-01-08 11:44] VITALS: BP 148/90; PULSE 76; RESP 18; TEMP 36.8; O2SAT 98
== END 2024-01-08 11:45 | disposition home or self-care (01) ==
PROVIDERS: Emergency Provider Emergency Medicine
DX: K52.9 Noninfective gastroenteritis and colitis, unspecified (principal); R10.9 Unspecified abdominal pain; R11.2 Nausea with vomiting, unspecified
CPT/HCPCS: 74177; 80053; 81001; 83690; 85025; 96374; 96375; 99285; J1885; J2405; J2550; Q9967; S0028

== ENCOUNTER 2024-03-12 20:10 | Emergency (ER) | payer SELFPAY ==
[2024-03-12 20:11] VITALS: BP 123/80; PULSE 55; RESP 16; TEMP 36.6; O2SAT 99; BMI 26.6
--- NOTE | 2024-03-12 21:01 | HMH.EDGENADL ---
Discharge Plan Disposition Patient Disposition: Home, Self-Care Prescriptions Prescriptions: New cyclobenzaprine 10 mg tablet 10 mg PO TID PRN (Reason: muscle spasm) 5 Days Qty: 15 0RF ibuprofen 800 mg tablet 800 mg PO TID PRN (Reason: pain) 7 Days Qty: 20 0RF No Action ibuprofen [IBU] 800 mg tablet 800 mg PO Q8HP PRN (Reason: Moderate Pain) Qty: 30 0RF cyclobenzaprine 10 mg Tablet 10 mg PO BID PRN (Reason: Muscle Spasm) Qty: 20 0RF promethazine 25 mg tablet 25 mg PO Q6H PRN (Reason: nausea and vomiting) Qty: 12 0RF Referrals Follow up/Referrals: Provider,Referral, MD [Primary Care Provider] - See instructions Activity Restrictions/Add. Instructions Additional Instructions/Restrictions: Your symptoms are consistent with abdominal wall strain this could take a few weeks to get better please rest for a few days apply ice to the areas that are hurting take your anti-inflammatory medication muscle relaxer return with any significant worsening of symptoms. Clinical Impressions Clinical Impression: Abdominal wall strain Stand Alone Forms Stand Alone Forms: Work/School Release Print Language Print Language: Hungarian Discharge ED Provider: Bernadette Tan General Adult HPI General Stated complaint: left abdomin pain Time Seen by Provider: 03/12/24 20:54 History of Present Illness HPI narrative: Patient is a 23-year-old male presenting today with an abdominal wall discomfort after a physical strain at work. States that he was pulling with all of his strength and cephalocaudal direction with his arms and all of a sudden felt a strain in his left lower quadrant of his abdomen. No discomfort prior to this. He has no history of any type of preceding symptoms such as nausea vomiting changes in bowel movements urination etc. He denies any pain in his testicles. Pain is worsening with movement or touch at the moment. Related Data Previous Rx's ?Medication ?Instructions ?Recorded cyclobenzaprine 10 mg tablet 10 mg PO BID PRN Muscle Spasm #20 12/27/23 tabs ibuprofen 800 mg tablet (IBU) 800 mg PO Q8HP PRN Moderate Pain 12/27/23 #30 tabs promethazine 25 mg tablet 25 mg PO Q6H PRN nausea and 01/08/24 vomiting #12 tabs cyclobenzaprine 10 mg tablet 10 mg PO TID PRN muscle spasm 5 03/12/24 days #15 tabs ibuprofen 800 mg tablet 800 mg PO TID PRN pain 7 days #20 03/12/24 tabs Allergies Allergy/AdvReac Type Severity Reaction Status Date / Time No Known Allergies Allergy Verified 10/03/22 15:10 [facility] Disclaimer: The information contained in this section may have been updated after the patient was seen, as this information can be updated by other users. Medical History No significant past medical history Surgical History No significant past surgical history Family History Other No significant family history Social History Smoking Status: Never smoker alcohol intake: never substance use type: denies use current occupational status: other Travel in the last 8 weeks: None household members: family housing: house Have you lived/traveled outside [place] in past 30 days?: No Contact w/someone who lives/traveled outside [place] past 30 days?: No Exposure to someone with infectious disease in past 14 days?: No Do you have a fever (greater than 100.4 F or 38 C)?: No Have you tested positive for COVID-19: No Exposed to someone with COVID-19 in past 14 days?: No Do you have a sore throat?: No Do you have a cough?: No Do you have any weakness?: No Do you have any diarrhea?: No Are you experiencing any unusual bleeding?: No Do you have any muscle aches/pain?: No Do you have any abdominal pain?: Yes Are you experiencing loss of taste or smell?: No Other Medical History Have you received the Flu Vaccine for this season: No Have you received the Pneumonia Vaccine: No ROS Obtained: Yes All systems reviewed & no additional complaints except as documented Physical Exam General General appearance: alert and in no apparent distress Respiratory Respiratory exam: Present normal lung sounds bilaterally Cardiovascular Cardiovascular exam: Present regular rate Abdominal Exam Abdominal exam: Present soft and tenderness (There is some tenderness in the left anterior aspect of the abdominal wall in the left lower quadrant); Absent distention Neurological Exam Neurological exam: Present alert and oriented X3 Medical Decision Making Medical Records Screening: Per USPSTF and CDC recommendations, given the prevalence of disease in our region, it is our hospital?s policy to screen for HIV and viral Hepatitis for all patients aged 18 and over and those with ongoing risk factors. Eduardo Inquiry Pt receiving controlled substance: No Orders (Tests/Meds): ED MEDICATIONS Discontinued Medications Generic Name Dose Route Start Last Admin Trade Name Freq PRN Reason Stop Dose Admin Cyclobenzaprine HCl 5 mg 03/12/24 20:57 Cyclobenzaprine 10mg Tablet PO 03/12/24 20:58 ONCE ONE Ketorolac Tromethamine 15 mg 03/12/24 20:57 Ketorolac 30mg/Ml Vial IV 03/12/24 20:58 ONCE ONE Medical Decision Narrative: 23-year-old with above history and physical which is consistent from the mechanism standpoint with a abdominal wall strain. I am not worried about anything deep to this at the moment such as abdominal pathology or colonic or kidney stone abnormalities etc. Also has no testicular pain. Given the fact that he has this mechanism had sudden strain in his abdominal wall musculature worsening with movement touch this is consistent with a muscle wall strain. Toradol and Flexeril have been given in the emergency department ibuprofen and Flexeril discharged home. Return precautions emphasized he was given a few days off of work discharged in stable condition. Critical Care Critical Care Time Critical Care Time: No
[2024-03-12] MEDS: CYCLOBENZAPRINE 10MG TABLET 5 MG PO (21:09)
[2024-03-12] MEDS: KETOROLAC 30MG/ML VIAL 15 MG IV (21:10)
[2024-03-12 21:18] VITALS: BP 126/88; PULSE 55; RESP 16; TEMP 36.6; O2SAT 98
--- NOTE | 2024-03-12 21:22 | PC.NURSE ---
Patients IV removed. Catheter tip intact. Bleeding controlled.
== END 2024-03-12 21:23 | disposition home or self-care (01) ==
PROVIDERS: Emergency Provider Student in an Organized Health Care Education/Training Program
DX: S39.011A Strain of muscle, fascia and tendon of abdomen, initial encounter (principal); R10.32 Left lower quadrant pain; X50.0XXA Overexertion from strenuous movement or load, initial encounter; Y93.89 Activity, other specified; Y92.89 Other specified places as the place of occurrence of the external cause
CPT/HCPCS: 96374; 99283; J1885